=== PATIENT | female | born 1950 | race African-American/Black ===

== ENCOUNTER → 2016-08-11 | Outpatient (CLI) | payer OTHER ==
[~2016-08-11] MED LIST: AMBIEN 10 MG TA10 MG PO; AMBIEN CR 6.26.25 M1 PO; ANTIDEPRESSANT; BACTRIM DS TAB1 EACH PO; BUPROPION HCL200 MG PO; CELEBREX 200 M200 MG PO; COUMADIN 4 MG TA4 M1 PO; CYMBALTA60 MG PO; DESYREL OR; FLEXERIL; HYDROCODONE-AP1 EACH PO; MIRAPEX0.25 MG PO; MORPHINE SULFA100 MG PO; OXYCONTIN CR 8080 M1 PO; PERCOCET 10-321 EACH OR; PERCOCET 5-3251 EACH PO; PREDNISOLONE 5 M5 MG PO; PREDNISONE 10 M10 M1 PO; PREDNISONE 5 MG5 M1 PO; PRILOSEC40 MG PO
== END ==
LOC: LAB 16:11 → RAD 16:11
DX: M54.9 Dorsalgia, unspecified (principal); V49.9XXA Car occupant (driver) (passenger) injured in unspecified traffic accident, initial encounter

== ENCOUNTER → 2016-08-28 | Outpatient (CLI) | payer OTHER | LOC: RAD 10:27 | DX: M47.22 Other spondylosis with radiculopathy, cervical region (principal); M54.2 Cervicalgia ==

== ENCOUNTER → 2021-09-02 | Outpatient (CLI) | payer OTHER | LOC: MRI 10:05 | PROVIDERS: ATTEND Internal Medicine Rheumatology | DX: M47.816 Spondylosis without myelopathy or radiculopathy, lumbar region (principal); M48.061 Spinal stenosis, lumbar region without neurogenic claudication; M54.50 Low back pain, unspecified ==

== ENCOUNTER → 2021-09-14 | Outpatient (CLI) | payer OTHER ==
[~2021-09-14] VITALS: Ht 152.4 cm; Wt 97.5 kg
[~2021-09-14] MED LIST changes: +CELEBREX 200 M200 M1 PO; +CLARITIN10 M3 PO; +CRESTOR40 MG PO; +DOMPERIDONE PO; +ESCITALOPRA5 MG/5 ML PO; +FLEXERIL PO; +KLOR-CON M2020 MEQ PO; +MIRALAX119 GM PO; +MIRAPEX1 MG PO; +MS CONTIN60 MG PO; +NEURONTIN 300M300 M2 PO; +PRILOSEC OTC20 MG PO; +SEROQUEL 50 MG50 M1 PO; +VITAMIN D21250 MCG PO
--- NOTE | ~2021-09-14 | HPC ---
[facility] [address] [address] PAIN MANAGEMENT CONSULTATION Name: RAJWINDER JUNG Room #: REG NARENDRA CastilloLupeMauricio.#: [id number] Admission: 09/14/21 Attend Phys: Clifton Herrera DO Discharge: Date of : 52 Report #: [id number] THIS REPORT FOR: cc: Tye Garcia MD, Stanley P. MD Johnson, James E. DO ~ cc: Cruz Vogel MD DATE OF SERVICE: 09/14/2021 REFERRING PHYSICIAN: Dr. Cruz Vogel CHIEF COMPLAINT: Low back pain, bilateral buttock pain. HISTORY OF PRESENT ILLNESS: As you know, the patient is a very pleasant 71-year-old female reporting acute onset of low back pain and upper buttock pain beginning 07/20/2021. She denies injury or trauma. She has had prior epidural injections in the past, somewhere in [id number] which she reports is ineffective. This was likely due to the fact that the patient needed decompression at the L4-L5 level, which she ultimately underwent with resolution of that pain. Unfortunately, symptoms reoccurred after this surgery. She has trialled conservative treatment since that point, utilizing [id number]-[id number] medication, rest and relaxation. She reports that she has been experiencing this increasing pain and bilateral buttock pain. She denies bowel and bladder dysfunction with that issue. She has not sought physical therapy nor has she been referred for physical therapy. She has not trialled conservative chiropractic manipulation, acupuncture therapy or massage therapy. She has not trialled fojh-elc-zxtkzai medications. She is not in any type of home stretching exercise program. She is taking gabapentin 300 mg in the morning, 300 mg at night, but is not noticing much in the way of improvement with the symptoms of pain she is experiencing. She was ultimately sent for MRI of the lumbar spine by her solder technician, Dr. Cruz vogel, which showed severe central canal stenosis at the L1-L2 level, severe central canal stenosis at the L2-L3 level and this prompted a referral to our clinic to discuss treatment options. The patient reports her pain is continuous, steady and constant. She describes the pain as aching, stabbing, numbness and tingling when describing pain. Places current pain score 10/10. Daily average at 10/10. Worst pain has been is 10/10. The patient states that all activities exacerbate symptoms. Nothing tends to improve pain. The patient has been referred to our service to discuss interventional treatment options to address suspected lumbar radiculopathy. PAST MEDICAL HISTORY: 1. Fibromyalgia. 2. Osteoarthritis. 3. Depression. 4. [place] [address] PAIN MANAGEMENT CONSULTATION Name: RAJWINDER JUNG Room #: REG Hanh Wise#: [id number] Admission: 09/14/21 Attend Phys: Clifton Herrera DO Discharge: Date of : 52 Report #: [id number] 5. Morbid obesity. 6. Hypertension. PAST SURGICAL HISTORY: 1. Left total hip arthroplasty. 2. Left total knee arthroplasty. 3. Right total knee arthroplasty. 4. L4-L5 lumbar laminectomy. SOCIAL HISTORY: The patient denies tobacco use. Admits to 1 alcohol beverage per day. She is retired, retired on 10/12/2018. She is not receiving workmen's compensation or she is trying to obtain disability benefits. She is not in litigation in regards to pain. She is unaccompanied at today's visit. REVIEW OF SYSTEMS: Positive for wearing corrective eyewear, chronic sinus problems with rhinitis, shortness of breath with walking, lying flat, nocturia, sexual difficulty, varicose veins, depression, osteoarthritis, fibromyalgia, causing generalized pain, morbid obesity. All other review of systems negative per 12-point review of systems other than those listed in history of present illness. Pain impact score 68/70, severe near-complete interference of daily activities secondary to pain. IMAGING: MRI of the lumbar spine obtained 09/02/2021 shows T11-T12 unremarkable, T12-L1 unremarkable. L1-L2 shows disk osteophyte complex, bilateral facet arthropathy resulting in severe central canal stenosis. Severe left and moderate right neural foraminal narrowing. L2-L3 shows posterior disk osteophyte complex, bilateral facet arthropathy resulting in severe central canal stenosis. No significant right, moderate left neural foraminal narrowing. L4-L5 shows laminectomies, bilateral facet arthropathy. No significant right, but moderate left neural foraminal narrowing. L5-S1 bilateral facet hypertrophy, right hemilaminectomy. No significant central canal stenosis, severe right and mild left neural foraminal narrowing. PQRS: The patient has known arthritic changes of the lumbar spine, bilateral hips and knees. No rheumatoid arthritis. She is placing pain intensity 10/10. She is a fall risk and has had multiple falls in the last 3 months. She utilizes a roller walker for ambulation. She is on no blood thinners and is not treated for hypertension, though she is extremely hypertensive here. She is on no opioids, has a low opioid addiction potential based on assessment tool. Pain impact is 68/70, severe, near-complete interference with daily activities secondary to pain. ALLERGIES: ANTIHISTAMINES. [address] [address] PAIN MANAGEMENT CONSULTATION Name: RAJWINDER JUNG Room #: REG [facility]#: [id number] Admission: 09/14/21 Attend Phys: Clifton Herrera DO Discharge: Date of : 52 Report #: [id number] CURRENT MEDICATIONS: Mirapex 1 mg per day, quetiapine 50 mg p.o. every day, cyclobenzaprine 10 mg t.i.d., loratadine 10 mg once a day, escitalopram 10 mg once a day, potassium chloride 20 mEq b.i.d., Celecoxib 200 mg once a day, gabapentin 300 mg b.i.d., domperidone 10 mg 4 times a day, rosuvastatin 40 mg per day, ergocalciferol 1250 mg weekly, morphine sulfate, MS Contin 60 mg b.i.d., omeprazole 20 mg b.i.d., zolpidem 10 mg p.o. at bedtime. PHYSICAL EXAMINATION: VITAL SIGNS: Blood pressure 165/106, repeat blood pressure 155/112, pulse is 103, respiratory rate 20, unlabored. The patient is 98% on room air. Height 5 feet tall, weight 215 pounds, BMI calculated 42.0. GENERAL: Well-developed, well-nourished, well-hydrated class III, morbidly obese 71-year-old female appearing stated age, no acute distress. Awake, alert and oriented x3. Pain is rated at 10/10. HEENT: Normocephalic, atraumatic. Pupils are round. She is wearing a mask in compliance with COVID-19 regulations. LUNGS: Appear clear. She is able to complete sentences. She is not in any respiratory distress. ABDOMEN: Soft and obese. EXTREMITIES: Show no clubbing, no cyanosis, no edema. MUSCULOSKELETAL: Lower extremity strength is symmetrical, but deconditioning is noted bilaterally. Muscle bulk and tone is equal and symmetrical in lower extremities. Seated straight leg raising negative. Supine straight leg raising negative. Fabere's test is negative. Modified Gaenslen's positive for axial low back pain. Ankle clonus negative. Lumbar provocation testing is met with increasing axial back pain. There are well-healed surgical scars over the lumbar region. ASSESSMENT: 1. Symptomatic lumbar radiculopathy. 2. Severe central canal stenosis of lumbar spine. 3. Severe neural foraminal stenosis of lumbar spine. 4. Lumbar degeneration. 5. Facet arthropathy of lumbar spine. 6. Morbid obesity. 7. Essential hypertension. 8. Chronic intractable pain. PLAN: 1. The patient has been referred to our service to discuss treatment options for suspected lumbar radiculopathy. We have spent with the patient over 30 minutes time reviewing her MRI, the findings at the L2-L3 and L3-L4 level shows severe central canal stenosis, which will ultimately need decompression. We have discussed with the patient that the treatment options for lumbar radiculopathy are as follows, that may be beneficial for the patient's symptoms. [address] [address] PAIN MANAGEMENT CONSULTATION Name: RAJWINDER JUNG Room #: REG Hanh Wise#: [id number] Admission: 09/14/21 Attend Phys: Clifton Herrera DO Discharge: Date of : 52 Report #: [id number] We discussed physical therapy, stretching exercise, core strengthening and a concerted effort at weight loss as a treatment approach. We discussed medication management with escalating doses of gabapentin, which can be done through the primary care team or through our services. We discussed lumbar epidural injection under fluoroscopic guidance for which the patient was referred to our clinic. We also discussed with the patient surgical options, which will ultimately be necessary to decompress the 2 levels of severe stenosis. After reviewing the risks and benefits of all proposed treatment options, the patient chose to begin the authorization process to undergo lumbar epidural injection under fluoroscopic guidance. Due to third republican payer restrictions authorization has to be obtained before the patient could undergo a lumbar epidural injection, authorization could take anywhere from 4-7 working days, will begin that process immediately. Once we have completed the process, we will have the patient return to undergo the first in a series of requested lumbar epidural injections. 2. We have recommended to the patient to increase her gabapentin dose. She is taking an extremely low dose of medication at this time 300 mg morning and 300 mg at night. Recommend at least increasing to 300 mg in the morning, 600 mg at night for the next couple of nights with possible further increases to address issues. She does not need a refill of medications at this time. 3. I have advised the patient to contact the referring physician, Dr. Cruz Vogel for a referral to Neurosurgery. She is going to need to be evaluated by Neurosurgery to discuss the surgical options to address the L2 and L3 level, which would require a 2-level fusion with instrumentation. The patient will be contacting the referring physician for that referral. 4. We will see the patient back in followup visit for the requested lumbar epidural injection once the authorization has been obtained. We are hopeful this will occur quickly and we will have the patient return as rapidly as possible and trial the epidural injection. 5. I wish to thank Dr. Cruz Vogel for the referral of the patient to our clinic. We will keep you apprised of the patient's response to treatment as we address central canal stenosis and subsequent lumbar radiculopathy involving the lower extremity secondary to the findings at the L2-L3 and L3-L4 levels. Again, we wish to thank you for the opportunity to see the patient in consultation. By: [id number] Clifton Herrera DO /nt
[2021-09-14 09:46] VITALS: BP 165/106
--- NOTE | 2021-09-14 10:12 | NUR ---
Pain Clinic Assessment: 1. History of Osteoarthritis: History of Rheumatoid Arthritis: BACK/NECK 2. Height: 5 ft. 0 in. 152.4 cm. Weight: 215.0 lb. oz. 97.524 kg. Patient's BMI: 42.0 3. Vital Signs: BP: 165/106 Pulse: 103 Resp: 20 Temp: 02 Sat: 98 ECG Mon: 4. Pain Intensity: 10 5. Fall Risk: Dizziness: N Needs help standing or walking: Y Fallen in the last 3 months: Y Fall risk comments: 6. Patient on Blood Thinner: None 7. History of Hypertension: N 8. Opioid Therapy greater than 6 weeks: N Opiate Contract Signed: 9. Risk Assessment Tool Provided: 0-3 LOW RISK 10. Functional Assessment Tool: 68/70 11. Recreational Drug Use: Never Drug Type: Tobacco Use: Never Smoker Tobacco Type: Amount or Packs/day: How Many Years: Alcohol Use: Yes Frequency: Weekly Quant: 1
== END ==
LOC: PAIN 08:31
PROVIDERS: ATTEND Anesthesiology Pain Medicine
DX: M47.26 Other spondylosis with radiculopathy, lumbar region (principal); M51.16 Intervertebral disc disorders with radiculopathy, lumbar region; M48.061 Spinal stenosis, lumbar region without neurogenic claudication; E66.01 Morbid (severe) obesity due to excess calories; I10 Essential (primary) hypertension; G89.29 Other chronic pain; Z79.899 Other long term (current) drug therapy; Z88.8 Allergy status to other drugs, medicaments and biological substances

== ENCOUNTER → 2021-09-27 | Outpatient (CLI) | payer OTHER ==
[~2021-09-27] VITALS: Ht 152.4 cm; Wt 100.6 kg
--- NOTE | ~2021-09-27 | HPC ---
[facility] [place] [address] PAIN MANAGEMENT CONSULTATION Name: RAJWINDER JUNG Room #: REG NARENDRA English.#: [id number] Admission: 09/27/21 Attend Phys: Clifton Herrera DO Discharge: Date of : 52 Report #: [id number] THIS REPORT FOR: cc: Tye Garcia MD, Stanley P. MD Johnson, James E. DO ~ cc: Cruz Vogel MD, Tye Garcia MD DATE OF SERVICE: 09/27/2021 REFERRING PHYSICIANS: Dr. Tye Garcia and Dr. Cruz Vogel CHIEF COMPLAINT: Low back pain, bilateral buttock and posterolateral thigh pain. HISTORY OF PRESENT ILLNESS: As you know, the patient is a very pleasant 71-year-old female reporting acute onset of low back pain, upper buttock and posterolateral thigh pain that began on 07/20/2021. Denies injury or trauma. She has undergone prior epidural injections to address lumbar radiculopathy in [id number], but ultimately had to undergo surgery and decompression of the L4-L5 level. She complains of her ongoing back symptoms to her stacking machine operator, Dr. Cruz Vogel, who sent the patient on for MRI, which showed severe central canal stenosis at the L1-L2 level and L2-L3 level, which prompted a referral to our clinic to discuss treatment options. We saw the patient in consultation per Dr. Vogel's request on 09/14/2021, diagnosed was lumbar radiculopathy secondary to severe central canal and neural foraminal stenosis. We established the patient treatment protocol for which the patient has returned today to undergo the first in a series of epidural injections. The patient reports that she has an appointment with Dr. Anai Mondragon tomorrow in 09/28 to discuss surgical decompression at L2-L3 and L3-L4 level. The patient returns to our clinic today to undergo first in a series of requested lumbar epidural injections. She is placing current pain score at a 7/10. ALLERGIES: ANTIHISTAMINES. CURRENT MEDICATIONS: See chart. SOCIAL HISTORY: The patient denies tobacco use. Admits to 1 alcohol beverage per day. She is retired, retired in 10/2018, not receiving workmen's compensation, unaccompanied today. IMAGING: No new imaging available. PQRS: The patient has known arthritic changes of lumbar spine, bilateral hips and knees. No rheumatoid arthritis. He is placing pain intensity today 7/10. She is a fall risk, but has not had a fall in last 3 months. She is not on blood thinners nor is she treated for hypertension. She is on no opioids, has a [facility] [address] [place] [address] PAIN MANAGEMENT CONSULTATION Name: RAJWINDER JUNG Room #: REG NARENDRA Wise#: [id number] Admission: 09/27/21 Attend Phys: Clifton Herrera DO Discharge: Date of : 51 Report #: [id number] low opioid addiction potential based on assessment tool. Pain impact is 68/70. Complete interference of daily activities secondary to pain. PHYSICAL EXAMINATION: VITAL SIGNS: Blood pressure 102/64, pulse 98, respiratory rate 20, unlabored. The patient is 97% on room air. Height 5 feet tall, weight 221.8 pounds, BMI calculated 43.3. GENERAL: Well-developed, well-nourished, well-hydrated class III, morbidly obese 71-year-old female appearing stated age, pain is rated today 7/10. HEENT: Normocephalic, atraumatic. Pupils are round and responsive. Speech is fluent. She is deemed a good historian. She is wearing a mask in compliance with COVID-19 regulations. EXTREMITIES: Show no clubbing, no cyanosis, no edema. MUSCULOSKELETAL: Lower extremity strength is equal and symmetrical again today, but deconditioning noted bilaterally. Muscle strength 5/5. Seated straight leg raising negative. Supine straight leg raising is negative. Gabriel's test negative. Modified Gaenslen's positive for some axial low back pain. Well-healed surgical scars of the lumbar region. Muscle bulk and tone is symmetrical in lower extremity. ASSESSMENT: 1. Symptomatic lumbar radiculopathy. 2. Severe central canal stenosis of lumbar spine. 3. Severe neural foraminal stenosis of lumbar spine. 4. Lumbar degeneration. 5. Facet arthropathy of lumbar spine. 6. Class 3 morbid obesity. 7. Chronic intractable pain. PLAN: 1. The patient returns today in followup visit, prepared to undergo the first in a series of lumbar epidural injections under fluoroscopic guidance to address lumbar radicular pain. The patient has been advised of the risks and the benefits of a lumbar epidural injection. These risks include but are not necessarily limited to bleeding, bruising, infection, worsening pain, no relief of pain, also risk of temporary or permanent muscle weakness, temporary or permanent nerve damage, possible paralysis, post-dural puncture headache and . The patient states understood and wished to proceed. 2. No medication changes made at today's visit. The patient will continue current medical therapy as prior prescribed. 3. We will see the patient back in followup visit on an as needed basis for the next in the series of lumbar epidural injections. We have requested the patient contact our clinic to advise us of the direction of treatment that was determined by herself and her neurosurgeon, Dr. Anai Mondragon PROCEDURE NOTE. [facility] [address] [place] [address] PAIN MANAGEMENT CONSULTATION Name: RAJWINDER JUNG Room #: REG NARENDRA Wise#: [id number] Admission: 09/27/21 Attend Phys: Clifton Herrera DO Discharge: Date of : 52 Report #: [id number] DESCRIPTION OF PROCEDURE: L4-L5 interlaminar epidural steroid injection under fluoroscopic guidance. This is the first procedure of the first series that the patient is undergoing. After obtaining written consent, the patient was taken back to the fluoroscopy suite, placed in a prone position with pillow under the abdomen to decrease lumbar lordosis. The skin overlying the lumbosacral area was then prepped and draped in aseptic fashion. The L4-L5 vertebral interspace was then identified by AP fluoroscopy. The skin and subcutaneous tissue overlying the target site of injection was anesthetized with 3 mL 1% lidocaine. A 20-gauge 4-1/2 inch Tuohy needle was then advanced under fluoroscopic guidance towards the epidural space using a right parasagittal approach. The epidural space was identified using loss of resistance to air technique. After negative aspiration for heme or cerebrospinal fluid, a total of 1 mL of Omnipaque was injected. A lumbar epidurogram was confirmed using both AP and lateral fluoroscopy. After negative aspiration for heme or cerebrospinal fluid, 5 mL of a solution containing 2 mL 40 mg per mL 80 mg total triamcinolone along with 3 mL lidocaine 1% was injected in increments. Contrast spread was noted posterior epidural space. The needle was then retracted approximately half way and needle tract flushed with 1 mL of 1% lidocaine. Needle was then removed. There were no apparent sensory or motor deficits in the lower extremity following the procedure. A sterile bandage was placed over the injection site. The heart rate, pulse, oximetry and blood pressure were continuously monitored after the procedure. There were no apparent complications. The patient tolerated the procedure well and was carefully escorted to the recovery room in stable condition. There were no apparent complications. After meeting discharge criteria, the patient was then discharged home. By: [id number] Clifton Herrera DO /nt
[2021-09-27 13:24] VITALS: BP 102/64
--- NOTE | 2021-09-27 13:42 | NUR ---
Pain Clinic Assessment: 1. History of Osteoarthritis: History of Rheumatoid Arthritis: BACK/NECK 2. Height: 5 ft. 0 in. 152.4 cm. Weight: 221.8 lb. oz. 100.608 kg. Patient's BMI: 43.3 3. Vital Signs: BP: 102/64 Pulse: 98 Resp: 20 Temp: 02 Sat: 97 ECG Mon: 4. Pain Intensity: 7 5. Fall Risk: Dizziness: N Needs help standing or walking: Y Fallen in the last 3 months: N Fall risk comments: 6. Patient on Blood Thinner: None 7. History of Hypertension: N 8. Opioid Therapy greater than 6 weeks: N Opiate Contract Signed: 9. Risk Assessment Tool Provided: 0-3 LOW RISK 10. Functional Assessment Tool: 68/70 11. Recreational Drug Use: Never Drug Type: Tobacco Use: Never Smoker Tobacco Type: Amount or Packs/day: How Many Years: Alcohol Use: Yes Frequency: Quant:
== END | disposition home or self-care (01) ==
LOC: PAIN 09:59
PROVIDERS: ATTEND Anesthesiology Pain Medicine
DX: M51.16 Intervertebral disc disorders with radiculopathy, lumbar region (principal); M47.26 Other spondylosis with radiculopathy, lumbar region; M48.061 Spinal stenosis, lumbar region without neurogenic claudication; E66.01 Morbid (severe) obesity due to excess calories; M19.90 Unspecified osteoarthritis, unspecified site; Z98.890 Other specified postprocedural states; Z79.899 Other long term (current) drug therapy; Z68.41 Body mass index [BMI] 40.0-44.9, adult; Z88.8 Allergy status to other drugs, medicaments and biological substances